=== PATIENT | male | born 1965 | race Caucasian/White ===

== ENCOUNTER 2021-03-12 07:20 | Inpatient (IN) | payer OTHER, SELFPAY ==
[~2021-03-12] VITALS: Ht 182.9 cm; Wt 130.2 kg
[2021-03-12 07:23] VITALS: BP 152/116
--- NOTE | 2021-03-12 07:35 | NUR ---
DR AIKEN AT BEDSIDE EVALUATING PT
[2021-03-12] MEDS ORDERED: ASPIRIN 81 MG TAB.CHEW PO ONE (07:40)
--- NOTE | 2021-03-12 07:40 | NUR ---
55 YO MALE BIBS C/O 5/10 CHEST PAIN, +SOB X2 DAYS. NON RADIATING PAIN, DESCRIBES PRESSURE TO MID UPPER CHEST THAT BECAME WORSE LASTNIGHT. +LIGHT HEADED, -LOC, -FEVER, -CHILLS, -N/V/D. PATIENT HAS A NON-PRODUCTIVE COUGH THAT HE STATES IS R/T ASTHMA. LUNGS CLEAR THROUGHOUT. A&OX4, GCS 15, SKIN INTACT, AMBULATORY, PLACED IN GOWN, CONNECTED TO MONITOR, VS: BP 170/107 HR 138 O2 95% RA RR 14. EKG DONE (AFIB @145HR) AWARE. PMH: ASTHMA, HTN (MED: AMLODOPINE 10MG) NON COMPLIANT D/T MEDICATION RAN OUT. ALLERGIES: NKDA
[2021-03-12] MEDS ORDERED: DILTIAZEM 25 MG/5 ML VIAL IVP ONE (07:55)
--- NOTE | 2021-03-12 08:00 | NUR ---
BLOOD SAMPLES COLLECTED WALKED TO LAB
[2021-03-12 08:27] LABS: BASOPHILS % (AUTO) 0.3 % (0.0-2.0); EOSINOPHILS # (AUTO) 0.1 K/uL (0-0.4); EOSINOPHILS % (AUTO) 1.5 % (0.0-4.0); HEMATOCRIT 47.8 % (36-52); HEMOGLOBIN 15.9 g/dL (12.0-18.0); LYMPHOCYTES # (AUTO) 0.8 K/uL (2.0-11.5); LYMPHOCYTES % (AUTO) 8.7 % (20.5-51.1); MEAN CORPUSCULAR HEMOGLOBIN 30 pg (27-31); MEAN CORPUSCULAR HGB CONC 33 g/dL (33-37); MEAN CORPUSCULAR VOLUME 89.8 fL (80-94); MONOCYTES # (AUTO) 0.6 K/uL (0.8-1.0); MONOCYTES % (AUTO) 5.9 % (1.7-9.3); NEUTROPHILS % (AUTO) 83.6 % (42.2-75.2); PLATELET COUNT (AUTO) 245 K/uL (140-450); RED BLOOD CELL COUNT(AUTO) 5.32 MIL/uL (4.20-6.10); WHITE BLOOD COUNT (AUTO) 9.6 K/uL (4.8-10.8)
[2021-03-12 08:57] LABS: PROTHROMBIN TIME 10.7 secs (10.8-13.4)
[2021-03-12 08:58] LABS: ALBUMIN 3.9 g/dL (3.4-5.0); ANION GAP 11.7 (8-16); CARBON DIOXIDE 28.9 mmol/L (21-32); CREATININE 0.8 mg/dL (0.6-1.3); POTASSIUM 3.6 mmol/L (3.5-5.1); TOTAL BILIRUBIN 1.2 mg/dL (0.0-1.0)
[2021-03-12] MEDS ORDERED: DILTIAZEM 30 MG TAB PO ONE (09:25)
--- NOTE | 2021-03-12 09:56 | NUR ---
RENE SAMPLE COLLECTED TAKEN TO LAB
[2021-03-12 10:07] LABS: APPEARANCE,URINE CLEAR (CLEAR); BILIRUBIN,URINE NEGATIVE (NEGATIVE); BLOOD, URINE NEGATIVE (NEGATIVE); COLOR,URINE YELLOW (YELLOW); LEUKOCYTE ESTERASE ,URINE NEGATIVE (NEGATIVE); NITRITE, URINE NEGATIVE (NEGATIVE); UGLUCOSE NEGATIVE (NEGATIVE)
[2021-03-12] MEDS ORDERED: AMLO10TA PO (10:23)
[2021-03-12] MEDS ORDERED: ALBU0.0912 INH (10:24)
--- NOTE | 2021-03-12 11:31 | NUR ---
PT AMBULATED TO RESTROOM WITH STEADY/EVEN GAIT.
[2021-03-12] MEDS ORDERED: POTASSIUM CHLORIDE 10 MEQ TABER PO PRN (11:35)
[2021-03-12] MEDS ORDERED: ACETAMINOPHEN 325 MG TAB PO PRN (11:35)
[2021-03-12] MEDS ORDERED: ONDANSETRON 4 MG/2 ML VIAL IVP PRN (11:35)
[2021-03-12] MEDS ORDERED: MAG SULF 2000 MG/WATER PREMIX 50 ML IV PRN (11:35)
[2021-03-12] MEDS ORDERED: MAGNESIUM OXIDE 400 MG TAB PO PRN (11:35)
[2021-03-12] MEDS ORDERED: HYDROcodone/APAP 5/325 MG 1 TAB TAB PO PRN (11:35)
[2021-03-12] MEDS ORDERED: KCL 20 MEQ/WATER INJ PREMIX 200 ML IV PRN (11:35)
--- NOTE | 2021-03-12 13:08 | NUR ---
MEAL AT BEDSIDE.
--- NOTE | 2021-03-12 13:20 | NUR ---
NURSING MANAGER AT BEDSIDE.
[2021-03-12] MEDS ORDERED: DIGOXIN 0.25 MG/ML AMP IV SCH ×2 (14:00→20:00)
[2021-03-12] MEDS ORDERED: FUROSEMIDE 40 MG/4 ML VIAL IVP SCH (14:00)
[2021-03-12] MEDS ORDERED: METOPROLOL 50 MG TAB PO SCH (14:00)
--- NOTE | 2021-03-12 14:03 | NUR ---
PT AMBULATED TO BATHROOM, STEADY GAIT
[2021-03-12] MEDS: APIXABAN 2.5 MG TAB PO SCH ×2 (15:01→20:24)
--- NOTE | 2021-03-12 15:05 | NUR ---
Urinal provided at bedside. Patient resting with both feet on left side of bed. teletypesetter monitor remains in place. Respirations even/unlabored; NAD. Bed locked in lowest position, side rails x 1, call light in reach.
--- NOTE | 2021-03-12 16:40 | NUR ---
PATIENT SITTING IN CHAIR AT BEDSIDE, ALERT AND ORIENTED.
--- NOTE | 2021-03-12 17:19 | NUR ---
PT AMBULATED TO BATHROOM, STEADY GAIT.
--- NOTE | 2021-03-12 18:52 | NUR ---
PATIENT SITTING UP IN CHAIR, REQUESTING SNACKS AT THIS TIME.
--- NOTE | 2021-03-12 19:09 | NUR ---
MEAL AT BEDSIDE
--- NOTE | 2021-03-12 19:20 | NUR ---
REPORT AND TRANSFER OF CARE GIVEN TO CATY ORTIZ.
--- NOTE | 2021-03-12 19:30 | NUR ---
pt back in room from . pt denies pain and discomfort. denies blurred vision and h.a. pt stated "my bp is high because im stressed from being here so long". pt consumed 80% of dinner. all needs met at this time. pt back on monitor, Addendum: 03/12/21 at 1946 by [facility] pt back in room from . pt denies pain and discomfort. denies blurred vision and h.a. pt stated "my bp is high because im stressed from being here so long". pt consumed 80% of dinner. all needs met at this time. pt back on monitor, sitting in chair at bedside.
[2021-03-12] MEDS ORDERED: METOPROLOL 50 MG TAB ONE (19:59)
--- NOTE | 2021-03-12 20:00 | NUR ---
bp 151/101. metoprolol scheduled for 9pm, given now for elevated bp. pt is in stable condition, denies blurred vision, vision changes and h/a. all needs met at this time.
[2021-03-12] MEDS: METOPROLOL 50 MG TAB PO SCH (20:08)
--- NOTE | 2021-03-12 20:30 | NUR ---
report given to jamin crowder ext [phone].
--- NOTE | 2021-03-12 20:31 | NUR ---
RECEIVED REPORT FROM ROOM CLERK NURSE OVER THE PHONE.
--- NOTE | 2021-03-12 20:42 | NUR ---
Patient will be admitted to care of . Admited to TELE. Will go to room 122A. Belongings list completed. Report to CATY LEONE.
--- NOTE | 2021-03-12 22:30 | NUR ---
PT UP TO FLOOR ON TELE ADMIT STRIP IS A-FIB, PT HAS NO C/O VOICED OF PAIN, JUST C/O OF IN ABILITY TO SLEEP. PT ABLE TO AMBULATE TO TOILET WITH A STEADY GAIT, HE HAS INTACT SKIN, ADMIT V/S FOLLOWS: T 97.3 P 68 R 20 B/PM 152/83 02 93% ON ROOM AIR. HAS NO C/ OF PAIN . ALL ORDERED PRECAUTIONS IN PLACE.
--- NOTE | 2021-03-13 | NUR ---
PT IN BED HR WENT DOWN TO 33, THEN BACK UP AGAIN,.PT IN BED SLEEPING. V/S FOLLOWS: T 97 P 73 R 20 B/P 150/80 02 94% ON ROOM AIR. ALL UNIVERSAL FALLS PRECAUTIONS IN PLACE.
[2021-03-13] MEDS ORDERED: DIGOXIN 0.25 MG/ML AMP IV SCH (04:00)
[2021-03-13 04:50] VITALS: BP 152/83
--- NOTE | 2021-03-13 05:00 | NUR ---
PT IN BED RESTING , V/S FOLLOWS: T 97.4 P 95 R 20 B/P 154/89 02 95% ON ROOM AIR. PT GIVEN ORDERED DIGOXIN IVP WELL METOPROLOL. WILL REEVALUATE B/P .
[2021-03-13] MEDS: METOPROLOL 50 MG TAB PO SCH (05:26)
--- NOTE | 2021-03-13 06:40 | NUR ---
REASSESSMENT OF V/S FOLLOWS: T 98.2 P 82 R 20 B/P 145/97 02 95% ON ROOM. ALL ORDERED PRECAUTIONS IN PLACE.
[2021-03-13 07:15] LABS: ALBUMIN 3.6 g/dL (3.4-5.0); ANION GAP 7.9 (8-16); CARBON DIOXIDE 32.6 mmol/L (21-32); CREATININE 0.8 mg/dL (0.6-1.3); POTASSIUM 3.5 mmol/L (3.5-5.1); TOTAL BILIRUBIN 1.3 mg/dL (0.0-1.0)
[2021-03-13 07:24] LABS: CHOL/HDL RATIO 5.4 (1-4.5); MAGNESIUM 1.7 mg/dL (1.8-2.4)
[2021-03-13 08:00] VITALS: BP 133/96
--- NOTE | 2021-03-13 08:00 | NUR ---
RECEIVED REPORT FROM MATERIAL ATTENDANT AT BEDSIDE FOR CONTINUITY OF CARE. INITIAL ASSESSMENT INITIATED. PATIENT DENIES CHEST PAIN. ALERT AWAKE ORIENTED X4, AMBULATES TO THE BATHROOM. ON MONITOR SHOWS CONTROLLED A. FIB.
[2021-03-13] MEDS ORDERED: FUROSEMIDE 40 MG/4 ML VIAL IVP SCH (09:00)
[2021-03-13] MEDS ORDERED: ENOXAPARIN 40 MG/0.4 ML SYR SUBQ SCH (09:00)
[2021-03-13] MEDS ORDERED: DOCUSATE SODIUM 100 MG GELCAP PO SCH (09:00)
[2021-03-13] MEDS: APIXABAN 2.5 MG TAB PO SCH (09:09)
--- NOTE | 2021-03-13 09:27 | NUR ---
PATIENT HAS BEEN SCREENED AND CATEGORIZED MODERATE NUTRITION RISK. PATIENT WILL BE SEEN WITHIN 3-5 DAYS OF ADMISSION. 03/14/21 03/16/[address]
[2021-03-13] MEDS ORDERED: POTASSIUM CHLORIDE 10 MEQ TABER PO ONE (09:45)
--- NOTE | 2021-03-13 10:00 | NUR ---
SEEN BY DR. NEAL AND DR. DEE FOR DC TODAY.
[2021-03-13] MEDS ORDERED: METO50TA99 PO (11:26)
[2021-03-13] MEDS ORDERED: APIX2.5 PO (11:26)
[2021-03-13 12:00] VITALS: BP 154/98
--- NOTE | 2021-03-13 14:10 | NUR ---
DISCHARGED PATIENT TO HOME WITH DC INSTRUCTION AND PRESCRIPTION GIVEN AND VERBALIZED UNDERSTANDING. NOTIFIED PUTTIER RADHA FOR FOLLOW UP ON CHF FOLLOW UP.
[2021-03-13] MEDS ORDERED: METOPROLOL 50 MG TAB PO SCH (21:00)
[2021-03-13 22:29] LABS: BASOPHILS # (AUTO) 0.1 K/uL (0.00-0.22); BASOPHILS % (AUTO) 0.4 % (0.0-2.0); EOSINOPHILS # (AUTO) 0.3 K/uL (0-0.4); HEMATOCRIT 47.7 % (36-52); HEMOGLOBIN 15.6 g/dL (12.0-18.0); LYMPHOCYTES # (AUTO) 0.9 K/uL (2.0-11.5); LYMPHOCYTES % (AUTO) 7.2 % (20.5-51.1); MEAN CORPUSCULAR HEMOGLOBIN 29 pg (27-31); MEAN CORPUSCULAR HGB CONC 33 g/dL (33-37); MEAN CORPUSCULAR VOLUME 90.1 fL (80-94); MONOCYTES # (AUTO) 0.9 K/uL (0.8-1.0); NEUTROPHILS # (AUTO) 10.8 K/uL (1.8-7.7); NEUTROPHILS % (AUTO) 83.4 % (42.2-75.2); PLATELET COUNT (AUTO) 226 K/uL (140-450); RED BLOOD CELL COUNT(AUTO) 5.29 MIL/uL (4.20-6.10); RED CELL DISTRIBUTION WIDTH 15.1 % (11.6-13.7); WHITE BLOOD COUNT (AUTO) 12.9 K/uL (4.8-10.8)
== END 2021-03-13 14:05 | disposition home or self-care (01) | DRG 308 ==
LOC: MED 07:20 → EDBEDREQTM 09:26 → MTU 11:39
PROVIDERS: ADMIT Hospitalist; ATTEND Hospitalist
DX: I48.91 Unspecified atrial fibrillation (principal); I50.33 Acute on chronic diastolic (congestive) heart failure; I11.0 Hypertensive heart disease with heart failure; J45.909 Unspecified asthma, uncomplicated; Z96.651 Presence of right artificial knee joint; Z20.822 Contact with and (suspected) exposure to COVID-19; G47.33 Obstructive sleep apnea (adult) (pediatric); I77.819 Aortic ectasia, unspecified site; Z79.899 Other long term (current) drug therapy
CPT/HCPCS: 36415; 71045; 80053; 81003; 83036; 83735; 83880; 84443; 84484; 85025; 85379; 85610; 85730; 87081; 93005; 96374; 96375; 99291; J1160; J1940; J3490; Q0092